=== PATIENT | female | born 1940 | race Caucasian/White ===

== ENCOUNTER → 2016-11-18 | Outpatient (CLI) | payer MEDICARE ==
[~2016-11-18] MED LIST: AMBI10TA PO; AMLO5TAB2 PO; BETA0.5S9 LEFT EYE; CALC250T PO; CITRTAB13; COQ1100C PO; FISH500C PO; FLUT1INH INH; GLIM1 PO; HYDR-3535 PO; LEVO75TA3 PO; LYRI75CA PO; MAGN1TAB14 PO; METF500T PO; NIAC500T5 PO; PANT40TA3 PO; POTA99TA PO; PRAV40TA2 PO; PROBCAP4 PO; TRUS2SOL LEFT EYE; TURM500C PO; VENL75TA PO; VENTAER INH; VITA10007 PO; VITA2000 PO; VITATAB11 PO
[2016-11-18 13:16] LABS: AUTOMATED NEUTROPHIL # 4.5 TH/MM3 (1.8-7.7); BASOPHIL # 0.1 TH/MM3 (0-0.2); BASOPHIL % 0.9 % (0.0-2.0); EOSINOPHIL # 0.5 TH/MM3 (0-0.4); HEMATOCRIT 39.5 % (35.0-46.0); HEMO FLAGS DIFF FINAL; LYMPH % 24.2 % (9.0-44.0); LYMPHOCYTE # 1.9 TH/MM3 (1.0-4.8); MEAN CELL VOLUME 90.4 FL (80.0-100.0); MEAN CORPUSCULAR HEMOGLOBIN 29.9 PG (27.0-34.0); MONO % 10.2 % (0.0-8.0); NEUT % 57.7 % (16.0-70.0); PLATELET COUNT 332 TH/MM3 (150-450); RED BLOOD COUNT 4.37 MIL/MM3 (4.00-5.30); RED CELL DISTRIBUTION WIDTH 14.5 % (11.6-17.2); WHITE BLOOD COUNT 7.8 TH/MM3 (4.0-11.0)
[2016-11-18 13:30] LABS: ANION GAP 8 MEQ/L (5-15); AST (GOT) 16 U/L (15-37); BICARBONATE 28.2 MEQ/L (21.0-32.0); BLOOD UREA NITROGEN 16 MG/DL (7-18); CHLORIDE 103 MEQ/L (98-107); GLOMERULAR FILTRATION RATE 74 ML/MIN (>89); GLUCOSE,FASTING 82 MG/DL (74-99); POTASSIUM 4.5 MEQ/L (3.5-5.1); SODIUM (NA) 139 MEQ/L (136-145)
[2016-11-18 13:33] LABS: ALKALINE PHOSPHATASE 67 U/L (45-117); ALT (GPT) 22 U/L (10-53); TOTAL BILIRUBIN ADULT 0.2 MG/DL (0.2-1.0)
[2016-11-18 14:08] LABS: BLOOD, URINE NEG (NEG); COMMENT (UR) CULT NOT INDICATED; CULTURE IF INDICATED CULT NOT INDICATED; GLUCOSE,URINE NEG (NEG); KETONE, URINE NEG (NEG); MUCUS URINE FEW /lpf (OCC); NITRITE,URINE NEG (NEG); SQUAMOUS EPITHELIAL CELL URINE 2 /hpf (0-5); URINE COLOR YELLOW (YELLW/STRAW)
--- NOTE | 2016-11-19 22:56 | EKG ---
Date Performed: 11/18/2016 Time Performed: 12:59:28 PTAGE: 76 years EKG: Sinus rhythm SEPTAL MYOCARDIAL INFARCTION, PROBABLY OLD ABNORMAL ECG PREVIOUS TRACING : 12/06/2007 09.06 Compared to prior tracing no significant change DOCTOR: Preet Rivas Interpretating Date/Time 11/19/2016 22:55:43
== END ==
LOC: CPRE 12:31
PROVIDERS: ATTEND Obstetrics & Gynecology Gynecology
DX: Z01.810 Encounter for preprocedural cardiovascular examination (principal); Z01.812 Encounter for preprocedural laboratory examination; N81.10 Cystocele, unspecified; R94.31 Abnormal electrocardiogram [ECG] [EKG]
CPT/HCPCS: 36415; 80053; 81001; 85025; 93005

== ENCOUNTER → 2016-11-26 | Day surgery (SDC) | payer MEDICARE ==
--- NOTE | 2016-11-18 16:48 | MH ---
cc: MARRY ABBASI CHRISTOPHER DATE OF ADMISSION 11/26/2016 DATE OF 1940 REASON FOR ADMISSION Anterior repair HISTORY OF PRESENT ILLNESS The patient is a 76-year-old elderly white female 3, para 3 status post prior hysterectomy for endometriosis. She has had bladder repair in the past. She has tried a pessary with limited result. At this point, she wants to proceed with repair of anterior compartment prolapse which is stage 2/3 on clinical exam. PAST MEDICAL HISTORY 1. Hypertension, 2. Hypercholesterolemia 3. Adult onset diabetes, 4. Peripheral neuropathy, 5. Hypothyroidism. MEDICATIONS 1. Metformin 500 mg b.i.d. 2. Effexor 75 mg b.i.d. 3. Synthroid 75 mcg daily. 4. Ambien 10 mg q.h.s. p.r.n., 5. Amlodipine 5 mg p.o. q. day, 6. Amaryl 1 mg b.i.d., 7. Albuterol inhaler p.r.n. ALLERGIES INGE INHIBITORS - LIP SWELLING HYDROCHLOROTHIAZIDE - DIZZINESS EGG ENALAPRIL - LIP SWELLING AND COUGH OBSTETRICAL HISTORY Three vaginal deliveries, uncomplicated. GYNECOLOGIC HISTORY Issues with endometriosis, hysterectomy for benign condition. PAST SURGICAL HISTORY 1. Hysterectomy, 2. Appendectomy, 3. Cholecystectomy, 4. Hernia repair 5. Rotator cuff repair 6. Glaucoma surgery with right and left eyes FAMILY HISTORY Noncontributory SOCIAL HISTORY Does not smokes, takes alcohol or drugs. , has good social support. REVIEW OF SYSTEMS As above. No chest pain, orthopnea, PND. No nausea, vomiting, fever or chills. No unusual bleeding. Does have issue with constipation. Pressure in the vagina and bulging and some degree of stress incontinence. Remainder of 14-point review negative. PHYSICAL EXAMINATION VITAL SIGNS: She is afebrile, vital signs stable blood pressure is 140/70, height is 5 feet three inches, weight 127, BMI is 22.5. GENERAL: Patient is alert and oriented in no acute stress, no sign of cognitive dysfunction or depression. HEENT: Within normal limits. NECK: Supple. No JVD. CHEST: Clear. HEART: Regular rate and rhythm. ABDOMEN: Soft, nontender. No hepatosplenomegaly. No sign of tenderness. PELVIC: Exam in the office shows pop Q score Aa is +1, Ap is -2, point C is -8, genital hiatus is four. Perineal body is 4, total vaginal length is 10. Levator muscles 1/5. Sacral nerve reflexes are decreased. Further exam under anesthesia. EXTREMITIES: Normal skin without rashes NEUROLOGIC: Nonfocal. No DVT signs. ASSESSMENT Patient with anterior compartment pelvic prolapse stage 2/3. PLAN We discussed options for management and treatment. She has failed pessary therapy and wants to proceed with surgical correction. Patient is aware of the risks, benefits and alternatives of planned procedure including damage to surrounding organs, bleeding, infection, De Vi incontinence as well as issues regarding prolonged catheterization as well as failure rate of at least 20%. Anticipate outpatient procedure. We will use DVT prophylaxis with sequential compression device and antibiotic prophylaxis with Ancef 1 gram IV. The patient has had medical clearance by Dr. Marry Abbasi. She will hold her metformin on the evening of surgery as well as the morning and we will check her sugars per protocol. MD VICTORIANO Scott/SA /4:23 PM /4:34 PM
[~2016-11-26] VITALS: Ht 162.6 cm; Wt 57.5 kg
[~2016-11-26] MED LIST changes: +ACETAMINOPHEN 1000 MG/100 ML VIAL IV ONE; +INSULIN HUMAN REGULAR 1,000 UNITS/10 ML VIAL SQ PRN; +KETOROLAC TROMETHAMINE 30 MG/ML (IVP) VIAL IV PUSH ONE; +LACTATED RINGER'S 1000 ML IV SCH; +LIDOCAINE 1%/EPINEPHrine 1:100,000 SOLN 30 ML VIAL ONE; +METOPROLOL TARTRATE 25 MG TAB PO PRN; +MIDAZOLAM HCL 2 MG/2 ML VIAL ONE; +NEOSTIGMINE METHYLSULFATE 10 MG/10 ML VIAL IV PUSH ONE; +ONDANSETRON HCL 4 MG/2 ML VIAL IV PUSH ONE; +PROPOFOL 200 MG/20 ML AMP IV ONE; +SODIUM CHLORID 0.9% 500 ML IV SCH; +ceFAZolin 1,000 MG/NS 100 ML IV SCH
[2016-11-26 08:35] VITALS: BP 127/60; PULSE 77; RESP 16; TEMP 98.6; O2SAT 95
[2016-11-26 13:15] VITALS: BP 129/60; PULSE 67; RESP 20; TEMP 97.5; O2SAT 96
--- NOTE | 2016-11-27 13:46 | MP ---
cc: VRII NICHOLSON MD DATE OF SURGERY: 11/26/2016 PREOPERATIVE DIAGNOSIS Cystocele. POSTOPERATIVE DIAGNOSIS Cystocele with enterocele. PROCEDURE 1. Paravaginal repair. 2. Enterocele repair, anterior approach. 3. Diagnostic cystoscopy. SURGEON Dr. Nicholson. ANESTHESIA General endotracheal. BLOOD LOSS 20 ccs. URINE OUTPUT 200 ccs clear. AMBULATORY SERVICE REPRESENTATIVE [place] staff x2. FLUIDS 2000 ccs of crystalloid. FINDINGS External genitalia poorly estrogenized. POP-Q score: Aa is 0, Ap is -2. Point C is -6. Total vaginal length is 8. Genital hiatus is 6. Perineal body is 4. Rectal exam is normal. Following repair Aa is -3. Cystoscopy shows normal trigone, good coaptation of urethra. Ureteral orifices patent x2. Dome and base of bladder normal. SPECIMENS Vaginal mucosa. COMPLICATIONS None. DISPOSITION To the recovery room stable. COUNTS Needle and sponge correct. DRAINS Key catheter. ANTIBIOTIC PROPHYLAXIS Ancef 1 gram. DVT PROPHYLAXIS Sequential compression device. TIMEOUT Time-out procedure per protocol. SUMMARY OF INDICATION FOR PROCEDURE The patient with symptomatic anterior compartment defect. PROCEDURE The patient was taken to the operating room theatre, prepped and draped in fashion appropriate for the planned procedure. She is in dorsal lithotomy position with careful attention paid to placement of legs in stirrups to avoid undue stress to sensitive neurovascular structures. Above findings noted. Neurovascular integrity was documented. Key catheter was placed. Methylene blue was instilled into the bladder. The vaginal mucosa was infiltrated with epinephrine and lidocaine solution. A midline incision was made from the vaginal apex to approximately 1 cm from the urethral meatus. The vaginal mucosa was reflected from the bladder. There was no spill of methylene blue. Mobilization was uncomplicated. The paravaginal and anterior repair performed with delayed absorbable suture without complication. The enterocele was pursestringed with delayed absorbable suture without complication or involvement of the bowel. Vaginal mucosa was trimmed and closed with interrupted suture. Hemostatic matrix was used for hemostasis to obviate the need for packing. The patient received 1 cc of fluorescein IV, 17-[place] bridge. A 70 degree scope was used to document ureteral patency, above findings noted. Procedure was concluded. Patient was reversed from anesthesia, taken to the recovery room in stable condition. MD VICTORIANO Scott/TLL /11:04 AM /1:16 PM
== END | disposition home or self-care (01) ==
LOC: HSDC 07:08
PROVIDERS: ATTEND Obstetrics & Gynecology Gynecology
DX: N81.10 Cystocele, unspecified (principal); I10 Essential (primary) hypertension; E03.9 Hypothyroidism, unspecified; E11.9 Type 2 diabetes mellitus without complications; E78.00 Pure hypercholesterolemia, unspecified; G62.9 Polyneuropathy, unspecified; Z79.84 Long term (current) use of oral hypoglycemic drugs; Z90.710 Acquired absence of both cervix and uterus
CPT/HCPCS: 00942; 57285; 88302; J0131; J0690; J1885; J2250; J2405; J2710; J3010; J7120

== ENCOUNTER → 2017-02-19 | Outpatient (CLI) | payer MEDICARE ==
[~2017-02-19] MED LIST changes: -ACETAMINOPHEN 1000 MG/100 ML VIAL IV ONE; -INSULIN HUMAN REGULAR 1,000 UNITS/10 ML VIAL SQ PRN; -KETOROLAC TROMETHAMINE 30 MG/ML (IVP) VIAL IV PUSH ONE; -LACTATED RINGER'S 1000 ML IV SCH; -LIDOCAINE 1%/EPINEPHrine 1:100,000 SOLN 30 ML VIAL ONE; -METOPROLOL TARTRATE 25 MG TAB PO PRN; -MIDAZOLAM HCL 2 MG/2 ML VIAL ONE; -NEOSTIGMINE METHYLSULFATE 10 MG/10 ML VIAL IV PUSH ONE; -ONDANSETRON HCL 4 MG/2 ML VIAL IV PUSH ONE; -PROPOFOL 200 MG/20 ML AMP IV ONE; -SODIUM CHLORID 0.9% 500 ML IV SCH; -ceFAZolin 1,000 MG/NS 100 ML IV SCH
--- NOTE | 2017-02-19 18:19 | RADRPT ---
EXAM DATE/TIME: 02/19/2017 14:31 [facility] COMPARISON: No previous studies available for comparison. INDICATIONS : Cough, COPD, Hypertenison, Diabetes. MEDICAL HISTORY : Hypertension. Hypercholesterolemia. Chronic obstructive pulmonary disease. Asthma. Arthrosclerosi s. GERD. Diverticulitis. Irritable bowel.Renal disease. Renal failure. Diabetic. Skin Cancer. SURGICAL HISTORY : Appendectomy. Cholecystectomy. ENCOUNTER: Initial ACUITY: 1 day PAIN SCORE: 0/10 LOCATION: chest FINDINGS: Course reticulonodular interstitial disease is present throughout both lungs, chronicity undetermined . There is no evidence of lobar consolidation or significant effusion. Heart size and mediastinal con tours are satisfactory. Mild degenerative change in the spine. Evidence of previous low thoracic kyph oplasty. CONCLUSION: Diffuse interstitial disease of undetermined chronicity Eleno Santiago MD on February 19, 2017 at 18:16 Board Certified Radiologist. This report was verified electronically.
--- NOTE | 2017-03-03 09:30 | RSPPFT ---
DATE OF PROCEDURE: 02/19/17 COMMENTS: Spirometry demonstrates an FEV1 of 1.9 at 106% of predicted, FVC of 2.3 at 87%, FEF 25-75 is 124%. Post-bronchodilator study demonstrated no significant change. Lung volumes demonstrated a reduced TLC. Diffusion capacity is mildly reduced but normal when corrected for alveolar volume. IMPRESSION: 1. No significant obstructive disease. 2. Mild to moderate restrictive disease. 3. No significant change following use of bronchodilator. 4. Mild reduction in diffusion capacity.
== END ==
LOC: HRSP 13:05
DX: J44.9 Chronic obstructive pulmonary disease, unspecified (principal); R05 Cough; I10 Essential (primary) hypertension; E11.9 Type 2 diabetes mellitus without complications
CPT/HCPCS: 71020; 94060; 94726; 94729